=== PATIENT | male | born 1970 | race Caucasian/White ===

== ENCOUNTER 2021-02-23 11:07 | Emergency (ER) | payer OTHER, SELFPAY ==
[2021-02-23] VITALS (7 sets, daily range): BP systolic 143–162; BP diastolic 99–115; PULSE 68–81; RESP 14–20; TEMP 36.4; O2SAT 94–98; BMI 35.7
--- NOTE | 2021-02-23 11:20 | EKG12_ITS ---
Test Reason : CP Blood Pressure : / mmHG Vent. Rate : 067 BPM Atrial Rate : 067 BPM P-R Int : 152 ms QRS Dur : 138 ms QT Int : 402 ms P-R-T Axes : -14 003 001 degrees QTc Int : 424 ms Normal sinus rhythm Right bundle branch block Abnormal ECG Confirmed by ALYSSIA EM, LAURA ([id number]), newspaper editor AURELIA TEJEDA ([id number]) on 02/25/2021 1:20:30 PM Referred By: BELEM/TARYN Confirmed By:KRISTOFER CADE MD
--- NOTE | 2021-02-23 11:38 | ED.VIS.CHEST ---
HPI History of Present Illness Chief Complaint: Chest Pain Informant: patient Onset/Context/Timing Onset: Hours (2) Activity at onset: sudden and rest (sitting at work, shortly after getting hunger pains and eating a breakfast burrito) Timing: Continuous Quality: Positive for Aching Location: Right Parasternal Current Severity: Moderate Maximum Severity: Moderate Worsened By: Nothing; Not Worsened By Exertion, Movement of Arm, Movement of Torso, Eating, Palpation and Breathing Relieved By: Nothing Associated Symptoms: Negative for Nausea, Vomiting, Diaphoresis, Dyspnea, Cough, Fever, Lightheadedness and Palpitations Narrative Narrative: Patient states he has been stressed. He had hunger pains, describing the fact that in his abdomen he felt uncomfortable because he was hungry, so he ate a breakfast burrito and something else and then started having chest discomfort that mildly radiates to his right upper back without any pleuritic component or other symptoms. He took aspirin because of this and out of concern comes to the emergency department. Aspirin did not help. When asked if he has heartburn he states he does have that from time to time but not a lot. He does not see a doctor regularly. CVD Risk Factors: Positive for Smoking (Quit long ago); Negative for Hypertension, Diabetes, Hypercholesterolemia and Family History 1' </=55 PE Risk Factors: Negative for Recent Travel/Surgery, Recent Immobilization, Prior DVT or PE, Cancer and OCP + Smoking + >/=35 PFSH PFSH Medical History Pneumonia Testicular cancer Home Medications aspirin 325 mg PO DAILY PRN 02/23/21 [History Last Taken Unknown] [id number]-[id number]-[id number] [Excedrin Migraine] 2 tab PO Q6H PRN 02/23/21 [History Last Taken Unknown] ibuprofen 200 mg PO Q6H PRN 02/23/21 [History Last Taken Unknown] Allergy/AdvReac Type Severity Reaction Status Date / Time Penicillins Allergy Shortness Verified 02/23/21 11:11 of breath Surgical History (Updated 02/23/21 @ 11:20 by Ana M Kessler) H/O knee surgery Social History Smoking Status: Former smoker ROS ROS ED Constitutional Constitutional ED: Denies chills or fever(s) Eyes Eyes: Denies change in vision or diplopia ENT ENT ED: Denies rhinorrhea or sore throat Cardiovascular Cardiovascular: Reports chest pain; Denies palpitations Respiratory/Chest Respiratory/Chest: Denies cough or dyspnea Gastrointestinal Gastrointestinal: Denies abdominal pain, diarrhea, nausea or vomiting Genitourinary Genitourinary ED: Denies dysuria or hematuria Musculoskeletal Musculoskeletal: Reports back pain; Denies neck pain Integumentary Denies abscess or rash Neurologic Neurologic: Denies headache(s), paresthesias or weakness Psychiatric Psychiatric: Denies anxiety or suicidal thoughts EXAM Physical Exam Const Vital Signs: 02/23/21 11:08 02/23/21 11:16 02/23/21 12:07 Temperature 97.6 F L Temperature Source Temporal Pulse Rate 81 81 72 Respiratory Rate 16 16 14 Respiratory Effort Normal Non-Labored Respiratory Pattern Normal Blood Pressure 147/112 H 160/115 H 145/99 H Blood Pressure Mean 123 130 114 Pulse Ox 98 96 95 Oxygen Delivery Method Room Air Room Air Room Air 02/23/21 13:00 02/23/21 14:10 02/23/21 15:00 Temperature Temperature Source Pulse Rate 68 75 76 Respiratory Rate 14 20 H 15 Respiratory Effort Respiratory Pattern Blood Pressure 143/105 H 155/110 H 162/99 H Blood Pressure Mean 117 125 120 Pulse Ox 94 95 95 Oxygen Delivery Method Room Air Room Air Room Air 02/23/21 16:04 Temperature Temperature Source Pulse Rate 81 Respiratory Rate 18 Respiratory Effort Respiratory Pattern Blood Pressure 145/105 H Blood Pressure Mean Pulse Ox 98 Oxygen Delivery Method Positive well nourished and well developed General Appearance ED: well developed and NAD HEENT Reports moist mucous membranes normocephalic and atraumatic Eyes PERRL and EOMs intact bilaterally Neck full ROM and supple Resp normal respiratory effort and clear to auscultation bilaterally Cardio regular rate, regular rhythm and no murmurs GI non-tender and non-distended Auscultation: normoactive bowel sounds Palpation: soft Back/Spine no CVA tenderness General Back: other FROM Extremity normal to inspection and no calf tenderness General Extremety ED: Negative for edema, pulses abnormal or tenderness General Extremity: Negative for edema or pulses abnormal Neuro oriented x3, CN's II-XII intact bilaterally and no sensory deficits noted Sensorium / Orientation: awake and alert Motor Exam: strength 5/5 throughout Skin no rashes or lesions noted and no wounds Heart Score History: Slightly/Non-Suspicious ECG: Normal Age: >45 - <65 years Risk Factors: No Risk Factors Troponin: </= Normal Limit Score: 1 MDM MDM MDM Narrative Medical decision making narrative: Patient discomfort is atypical, his cardiac work-up is negative including a delta troponin. His PERC score is 0, therefore he does not need further work-up to rule out pulmonary embolus at this time, nor are his symptoms suggesting that. He was initially given a GI cocktail which did not help with discomfort, he was subsequently given Toradol and is discharged stable condition advised to follow-up with his doctor. He is comfortable with that plan. Does not have a PCP so he was referred to the next doctor on the unassigned list, Dr. Jaquez. Lab Data Attestation: I reviewed the patient's lab results. Labs: Laboratory Results - last 24 hr 02/23/21 02/23/21 02/23/21 11:39 11:39 13:52 WBC 6.1 RBC 5.13 Hgb 15.6 Hct 46.6 MCV 90.8 MCH 30.4 MCHC 33.5 RDW Std Deviation 41.2 RDW Coeff of Arnaud 12.3 Plt Count 268 MPV 9.5 Immature Gran % (Auto) 0.300 Neut % (Auto) 55.6 Lymph % (Auto) 34.2 [place] % (Auto) 7.1 Eos % (Auto) 1.8 Baso % (Auto) 1.0 Absolute Neuts (auto) 3.4 Absolute Lymphs (auto) 2.08 Nucleated RBC % 0 Sodium 138 Potassium 3.4 L Chloride 109 H Carbon Dioxide 25.0 Anion Gap 4 L BUN 9 Creatinine 0.79 Estim Creat Clear Calc 109.43 Est GFR (MDRD) Af Amer 134 Est GFR (MDRD) Non-Af 110 BUN/Creatinine Ratio 11.4 Glucose 121 H Calcium 9.1 Troponin I High Sens 6 6 Radiography Diagnostic Testing: Radiology Impression Chest X-Ray 02/23/21 11:45 IMPRESSION: Normal x-ray examination of the chest. Electronically Signed: Kal Martin MD at 12:17 EDT , Service support , EKG Initial EKG: Attestation: I personally reviewed and interpreted this EKG as follows: Interpretation: Sinus Rhythm, No Acute Injury Pattern and RBBB Prior EKG tracings: available for review Prior: Unchanged Discharge Plan Triage Chief Complaint: Chest Pain ED Provider: Lincoln Coon Dx/Rx/DC Orders Clinical Impression: Atypical chest pain Instructions: ED Chest Pain, Uncertain Cause Prescriptions: No Action aspirin 325 mg Tablet 325 mg PO DAILY PRN (Reason: Pain) RF: 0 ibuprofen 200 mg Tablet 200 mg PO Q6H PRN (Reason: Pain) RF: 0 Excedrin Migraine 250-250-65 mg Tablet 2 tab PO Q6H PRN (Reason: Pain) RF: 0 Primary Care Provider: Care Physician,No Primary Referrals: Gómez Jaquez DO [STAFF PHYSICIAN] - As soon as possible Care Physician,No Primary [Primary Care Provider] - Disposition Disposition: Home, Self Care Discharge Date/Time: 02/23/21 16:04
--- NOTE | 2021-02-23 11:45 | RAD_ITS ---
STUDY: X-RAY CHEST REASON FOR EXAM: Male, 51 years old. Chest pain TECHNIQUE: Single AP portable view of the chest. COMPARISON: Comparison is made with prior study dated 05/14/2015. FINDINGS: The lungs are clear and expanded. Scattered calcified granulomas. There is no demonstrated pleural abnormality. Normal size heart. Normal mediastinum and renata. Normal visualized pulmonary arteries. Normal visualized aortic arch and descending thoracic aorta. There are degenerative changes of the visualized thoracic spine. Normal visualized ribs, clavicles, and shoulders. There is no demonstrated abnormality of the visualized soft tissue structures of the upper abdomen. RAD/Chest 1 View (Portable) IMPRESSION: Normal x-ray examination of the chest. Electronically Signed: Kal Martin MD at 12:17 EDT , Service support ,
[2021-02-23 11:52] LABS: Absolute Lymphocyte Count 2.08 X10^3/uL (0.83-4.51); Absolute Neutrophil Count 3.4 X10^3/uL (2.0-7.7); Basophil# 0.06 X10^3/uL; Eosinophil# 0.11 X10^3/uL; Eosinophils% 1.8 % (0-5); Hematocrit 46.6 % (40-54); Hemoglobin 15.6 g/dL (13.0-16.5); Lymphocyte # 2.08 X10^3/ul (0.83-4.51); Lymphocyte % 34.2 % (19-41); Mean Corp Hgb Conc 33.5 g/dL (32-36); Mean Corpuscular Hgb 30.4 pg (27.0-32.0); Mean Corpuscular Volume 90.8 fL (80-94); Mean Platelet Vol. 9.5 fl (6.2-12.0); Monocyte# 0.43 X10^3/uL; Monocyte% 7.1 % (0-10); NRBC Flagged by Analyzer 0 % (0-5); Neutrophil # 3.38 X10^3/uL (2.7-7.7); Neutrophil % 55.6 % (47-70); Platelet Count 268 K/mm3 (150-450); RBC Distribution Width CV 12.3 % (11.6-14.6); RBC Distribution Width SD 41.2 fl (35.1-43.9); Red Blood Count 5.13 M/mm3 (4.6-6.2); White Blood Count 6.1 K/mm3 (4.4-11.0)
[2021-02-23 12:10] LABS: Anion Gap 4 (5-15); BUN 9 mg/dL (7-18); BUN/Creat Ratio 11.4 RATIO (10-20); Calcium,Total 9.1 mg/dL (8.5-10.1); Chloride 109 mmol/L (98-107); Creatinine, Serum 0.79 mg/dL (0.70-1.30); EST Glomerular Filtration Rate 110 mL/min (>60); Est Glom Filt Rate - Afr Amer 134 mL/min (>60); Estimated Creatinine Clearance 109.43 ml/min; Glucose 121 mg/dL (74-106); Potassium 3.4 mmol/L (3.5-5.1); Sodium Level 138 mmol/L (136-145); Troponin-I HS 6 pg/mL (3.0-78.0)
[2021-02-23] MEDS: Mag Hydrox/Al Hydrox/Simeth 30 ML UDC PO (12:29)
[2021-02-23] MEDS: Ketorolac 15 MG/ML Vial IV (13:51)
[2021-02-23 14:18] LABS: Troponin-I HS 6 pg/mL (3.0-78.0)
== END 2021-02-23 16:04 | disposition home or self-care (01) ==
PROVIDERS: Emergency Provider Emergency Medicine
DX: R07.89 Other chest pain (principal); Z87.891 Personal history of nicotine dependence; Z79.82 Long term (current) use of aspirin
CPT/HCPCS: 71045; 80048; 84484; 85025; 93005; 96374; 99285; J7030; A4216